=== PATIENT | male | born 1975 | race Caucasian/White ===

== ENCOUNTER 2018-08-01 19:24 | Emergency (ER) | payer MEDICAID ==
[~2018-08-01] VITALS: Ht 170.2 cm; Wt 92.2 kg
[2018-08-01 19:28] VITALS: Ht 170.2 cm; Wt 92.2 kg
[2018-08-01 23:35] VITALS: BP 138/71
== END 2018-08-01 23:35 | disposition home or self-care (01) ==
LOC: ED 19:24
DX: S82.142A Displaced bicondylar fracture of left tibia, initial encounter for closed fracture (principal); W20.8XXA Other cause of strike by thrown, projected or falling object, initial encounter; Y93.89 Activity, other specified; Y92.89 Other specified places as the place of occurrence of the external cause; Y99.8 Other external cause status
CPT/HCPCS: J1885